=== PATIENT | male | born 2000 | race Caucasian/White ===

== ENCOUNTER 2022-05-09 18:51 | Emergency (ER) | payer MEDICAID, SELFPAY ==
[2022-05-09 19:30] VITALS: BP 149/63; PULSE 78; RESP 20; TEMP 36.8; O2SAT 98; BMI 32.5
--- NOTE | 2022-05-09 19:36 | EXP.UTC ---
Discharge Plan Disposition Patient Disposition: Home, Self-Care Condition: Good Prescriptions Prescriptions: New sulfamethoxazole-trimethoprim [Bactrim DS] 800-160 mg tablet 1 tab PO BID Qty: 20 0RF mupirocin 2 % ointment 1 applic topical TID 10 Days Qty: 22 0RF Rx Instructions: apply to skin around right great toe Referrals Follow up/Referrals: Stephany Dominguez APRN [Nurse Practitioner] - See instructions Provider,Referral, [Primary Care Provider] - See instructions Liliana Priest DPM [Staff Physician] - See instructions Activity Restrictions/Add. Instructions Additional Instructions/Restrictions: Soak foot in warm water and epson salt 3-4 times daily Open toed shoes or box toed shoes may help with discomfort and pain Take oral antibitiocs as prescribed and use topical antibiotics around skin on nail as instructed Follow up with Podiatry Call office for appoitment DO not dig or pry at area Straight to ER if any life threatening symptoms Clinical Impressions Clinical Impression: Ingrowing toenail with infection Stand Alone Forms Stand Alone Forms: Work/School Release Instructions Patient Instructions: Trimethoprim/Sulfamethoxazole (Alternative Therapy), DI for Ingrown Toenail, Mupirocin, DI for Infected Ingrown Toenail Discharge ED Provider: Tamika Vega [facility] [place] General Stated complaint: toe infection Time Seen by Provider: 05/09/22 19:36 History of Present Illness Provider Complaint: Patient states that he has been having issues with ingrown toenail on right great toe for over a month States that he has been trying to dig it out and thinks he may have got it infected now States that it is red and swollen and draining at times so he came in thinking he may need something for the infection Related Data Previous Rx's Medication Instructions Recorded mupirocin 2 % topical ointment 1 applic topical TID 10 days #22 05/09/22 grams sulfamethoxazole 800 1 tab PO BID #20 tabs 05/09/22 mg-trimethoprim 160 mg tablet (Bactrim DS) Allergies Allergy/AdvReac Type Severity Reaction Status Date / Time No Known Allergies Allergy Verified 05/09/22 19:43 [facility] Disclaimer: The information contained in this section may have been updated after the patient was seen, as this information can be updated by other users. Social History Smoking Status: Never smoker alcohol intake: never current occupational status: employed Travel in the last 8 weeks: None ROS Obtained: Yes All systems reviewed & no additional complaints except as documented and Yes Systems reviewed as appropriate & no additional complaints except as documented Constitutional Constitutional: Reports system reviewed and no additional complaints, except as documented and Reports as per HPI Eyes Eyes: Reports system reviewed and no additional complaints, except as documented and Reports as per HPI ENT Ears, Nose, Mouth, and Throat: Reports system reviewed and no additional complaints, except as documented and Reports as per HPI Cardiovascular Cardiovascular: Reports system reviewed and no additional complaints, except as documented and Reports as per HPI Musculoskeletal Musculoskeletal: Reports system reviewed and no additional complaints, except as documented and Reports as per HPI Comments: Right great toe infection/ingrown toenail Physical Exam General General appearance: alert and in no apparent distress Respiratory Respiratory exam: Present normal lung sounds bilaterally; Absent respiratory distress or wheezes Cardiovascular Cardiovascular exam: Present regular rate, normal rhythm and normal heart sounds Expanded Lower Extremity Exam Right: Top foot image: 1. redness, swelling and drainage noted to infected ingrown toenail Neurological Exam Neurological exam: Present alert, oriented X3 and normal gait Medical Decision Making Heath Inquiry Pt receiving controlled substance: No Heath wa
[2022-05-09 19:38] VITALS: BP 149/63; PULSE 78; RESP 20; TEMP 36.8; O2SAT 98
== END 2022-05-09 19:44 | disposition home or self-care (01) ==
PROVIDERS: Emergency Provider Nurse Practitioner
DX: L60.0 Ingrowing nail (principal); A49.01 Methicillin susceptible Staphylococcus aureus infection, unspecified site
CPT/HCPCS: 87070; 87077; 87186; 87205; 99212; 99213; G0463

== ENCOUNTER 2022-11-26 15:14 | Emergency (ER) | payer MEDICAID, SELFPAY ==
[2022-11-26 15:30] VITALS: BP 143/78; PULSE 63; RESP 19; TEMP 36.7; O2SAT 98
--- NOTE | 2022-11-26 15:46 | EXP.UTC ---
Discharge Plan Disposition Patient Disposition: Still a Patient Prescriptions Prescriptions: New sulfamethoxazole-trimethoprim [Bactrim DS] 800-160 mg tablet 1 tab PO BID Qty: 20 0RF mupirocin 2 % ointment 1 applic topical TID 10 Days Qty: 22 0RF Rx Instructions: apply to skin around the skin on both great toes No Action mupirocin 2 % ointment 1 applic topical BID Qty: 15 0RF mupirocin 2 % ointment 1 applic topical TID 10 Days Qty: 22 0RF Rx Instructions: apply to skin around right great toe Referrals Follow up/Referrals: Provider,Referral, MD [Primary Care Provider] - See instructions Daniel Woodard DPM [Physician] - See instructions Stephany Dominguez APRN [Nurse Practitioner] - See instructions Activity Restrictions/Add. Instructions Additional Instructions/Restrictions: Soak feet 10-15 minutes 3-4 times daily Apply topical ointment as prescribe and take oral antibiotics Call Podiatry and make appointment Return if needed Straight to ER if any life threatening symptoms Clinical Impressions Clinical Impression: Ingrowing toenail with infection Instructions Patient Instructions: DI for Infected Ingrown Toenail, DI for Ingrown Toenail Discharge ED Provider: Tamika Vega [facility] [place] HPI General Stated complaint: suspected infection in both big toes Mode of Arrival: Ambulatory Source of Information: Patient Limitations: No Limitations Time Seen by Provider: 11/26/22 15:46 Description of Symptoms (Recalled from Triage Doc. by RN): PATIENT C/O INGROWN TOENAILS TO BILATERAL GREAT TOES X 1 WEEK HEENT Symptoms (Recalled from RN notes): No Resp Symptoms (Recalled from RN notes): No Skin Symptoms (Recalled from RN notes): Yes MS Symptoms (Recalled from RN notes): No Functional Status (Recalled from RN notes): WNL History of Present Illness Provider Complaint: Patient states that he has a history of ingrown toenails and for the last week both great toenails have got inflammed again and started swelling and having redness so he came in to get them checked Related Data Previous Rx's Medication Instructions Recorded mupirocin 2 % topical ointment 1 applic topical TID 10 days #22 05/09/22 grams mupirocin 2 % topical ointment 1 applic topical BID apply to b/l 05/31/22 great toe #15 grams mupirocin 2 % topical ointment 1 applic topical TID 10 days #22 11/26/22 grams sulfamethoxazole 800 1 tab PO BID #20 tabs 11/26/22 mg-trimethoprim 160 mg tablet (Bactrim DS) Allergies Allergy/AdvReac Type Severity Reaction Status Date / Time No Known Allergies Allergy Verified 06/14/22 15:09 Worker's Comp Is this a Worker's Comp case?: No [facility] Disclaimer: The information contained in this section may have been updated after the patient was seen, as this information can be updated by other users. Social History Smoking Status: Never smoker alcohol intake: never current occupational status: employed Travel in the last 8 weeks: None ROS Obtained: Yes All systems reviewed & no additional complaints except as documented and Yes Systems reviewed as appropriate & no additional complaints except as documented Constitutional Constitutional: Reports system reviewed and no additional complaints, except as documented and Reports as per HPI Cardiovascular Cardiovascular: Reports system reviewed and no additional complaints, except as documented and Reports as per HPI Respiratory Respiratory: Reports system reviewed and no additional complaints, except as documented and Reports as per HPI Gastrointestinal Gastrointestingal: Reports system reviewed and no additional complaints, except as documented and as per HPI Integumentary/Breasts Skin/Breast: Reports system reviewed and no additional complaints, except as documented and Reports as per HPI Comments: bilateral ingrowing toenail worse on left Physical Exam General Gen
[2022-11-26 16:10] VITALS: BP 143/78; PULSE 63; RESP 19; TEMP 36.7; O2SAT 98
== END 2022-11-26 16:12 | disposition still patient (30) ==
PROVIDERS: Emergency Provider Nurse Practitioner
DX: L60.0 Ingrowing nail (principal)
CPT/HCPCS: 99212; 99214; G0463

== ENCOUNTER 2023-02-01 16:31 | Emergency (ER) | payer MEDICAID, SELFPAY ==
[2023-02-01 16:40] VITALS: BP 139/90; PULSE 88; RESP 18; TEMP 36.8; O2SAT 98; BMI 32.2
--- NOTE | 2023-02-01 16:48 | EXP.UTC ---
Discharge Plan Disposition Patient Disposition: Home, Self-Care Condition: Good Prescriptions Prescriptions: New mupirocin 2 % ointment 1 applic topical TID Qty: 22 0RF Rx Instructions: apply to skin around both great toe toenails sulfamethoxazole-trimethoprim [Bactrim DS] 800-160 mg tablet 1 tab PO Q12H Qty: 20 0RF Referrals Follow up/Referrals: Provider,Referral, [Primary Care Provider] - See instructions Daniel Woodard DPM [Physician] - See instructions Liliana Priest DPM [Staff Physician] - See instructions (call office for appointment) Activity Restrictions/Add. Instructions Additional Instructions/Restrictions: SOak feet in warm water and epson salt 3-4 times daily Take Medication as prescribed Use ointment as prescribed Follow up with Podiatry as was recommended for further evaluation and treatment Straight to ER if any life threatening symptoms Clinical Impressions Clinical Impression: Ingrowing toenail with infection Instructions Patient Instructions: DI for Infected Ingrown Toenail, DI for Ingrown Toenail Discharge ED Provider: Tamika Vega [facility] [place] General Stated complaint: ingrown toenails Mode of Arrival: Ambulatory Source of Information: Patient Limitations: No Limitations Time Seen by Provider: 02/01/23 16:48 Description of Symptoms (Recalled from Triage Doc. by RN): PATIENT C/O INGROWN TOENAILS TO BILATERAL GREAT TOES X 3 DAYS HEENT Symptoms (Recalled from RN notes): No Resp Symptoms (Recalled from RN notes): No Skin Symptoms (Recalled from RN notes): Yes MS Symptoms (Recalled from RN notes): No Functional Status (Recalled from RN notes): WNL History of Present Illness Provider Complaint: Patient states that he has a hx of ingrown toenails States that for the last few days he is having redness, swelling and drainage again from both great toes States he tried to dig out his toenails but thinks he may have got them infected so today he came in to get some antibiotics to help clear up the infection until he can get appointment with Podiatry Related Data Previous Rx's Medication Instructions Recorded mupirocin 2 % topical ointment 1 applic topical TID #22 grams 02/01/23 sulfamethoxazole 800 1 tab PO Q12H #20 tabs 02/01/23 mg-trimethoprim 160 mg tablet (Bactrim DS) Allergies Allergy/AdvReac Type Severity Reaction Status Date / Time No Known Allergies Allergy Verified 06/14/22 15:09 Worker's Comp Is this a Worker's Comp case?: No [facility] Disclaimer: The information contained in this section may have been updated after the patient was seen, as this information can be updated by other users. Social History Smoking Status: Never smoker alcohol intake: never current occupational status: employed Travel in the last 8 weeks: None ROS Obtained: Yes All systems reviewed & no additional complaints except as documented and Yes Systems reviewed as appropriate & no additional complaints except as documented Constitutional Constitutional: Reports system reviewed and no additional complaints, except as documented and Reports as per HPI ENT Ears, Nose, Mouth, and Throat: Reports system reviewed and no additional complaints, except as documented and Reports as per HPI Cardiovascular Cardiovascular: Reports system reviewed and no additional complaints, except as documented and Reports as per HPI Respiratory Respiratory: Reports system reviewed and no additional complaints, except as documented and Reports as per HPI Gastrointestinal Gastrointestingal: Reports system reviewed and no additional complaints, except as documented and as per HPI Musculoskeletal Musculoskeletal: Reports system reviewed and no additional complaints, except as documented and Reports as per HPI Comments: swelling, redness and drainage from skin around bilateral great toes due to ingrown toenails Physical Exam General General appearan
[2023-02-01 16:55] VITALS: BP 139/90; PULSE 88; RESP 18; TEMP 36.8; O2SAT 98
== END 2023-02-01 16:58 | disposition home or self-care (01) ==
PROVIDERS: Emergency Provider Nurse Practitioner
DX: L60.0 Ingrowing nail (principal); L03.031 Cellulitis of right toe; L03.032 Cellulitis of left toe
CPT/HCPCS: 99212; 99214; G0463

== ENCOUNTER 2023-08-04 07:39 | Emergency (ER) | payer BC, SELFPAY ==
[2023-08-04 07:41] VITALS: BP 135/83; PULSE 72; RESP 16; TEMP 36.6; O2SAT 98; BMI 27.4
[2023-08-04 07:47] VITALS: BP 135/83; PULSE 70; RESP 16; O2SAT 97
--- NOTE | 2023-08-04 07:55 | ED_ITS ---
Discharge Plan Disposition Patient Disposition: Home, Self-Care Prescriptions Prescriptions: New amoxicillin-pot clavulanate 875-125 mg tablet 1 tab PO BID 10 Days Qty: 7 0RF No Action mupirocin 2 % ointment 1 applic topical TID Qty: 22 0RF Rx Instructions: apply to skin around both great toe toenails sulfamethoxazole-trimethoprim [Bactrim DS] 800-160 mg tablet 1 tab PO Q12H Qty: 20 0RF Referrals Follow up/Referrals: Provider,Referral, [Primary Care Provider] - See instructions Liliana Priest DPM [Staff Physician] - See instructions Activity Restrictions/Add. Instructions Additional Instructions/Restrictions: Please apply Neosporin and make sure that the wounds are mechanically offloaded as discussed if you are going to go back to work. I recommend as much time off as you can possibly take to allow this to heal. Wear open toed shoes or make sure no significant trauma is ongoing as you wear your shoes for work. Clinical Impressions Clinical Impression: Ingrowing toenail with infection Instructions Patient Instructions: DI for Skin Abscess Discharge ED Provider: Vinny Chavez General Adult HPI General Chief complaint: Skin/Abscess/Foreign Body Stated complaint: Ingrown toenail on both big toes w/puss Time Seen by Provider: 08/04/23 07:44 History of Present Illness HPI narrative: Patient is a 22-year-old male presents today with bilateral ingrown toenails that have been bothering him for the last month he is attempted to get in to be seen by [facility] but has been unable states that the pain and inflammation has gotten to the point where he cannot handle it brought to the emergency department today. Related Data Previous Rx's Medication Instructions Recorded mupirocin 2 % topical ointment 1 applic topical TID #22 grams 02/01/23 sulfamethoxazole 800 1 tab PO Q12H #20 tabs 02/01/23 mg-trimethoprim 160 mg tablet (Bactrim DS) amoxicillin 875 mg-potassium 1 tab PO BID 10 days #7 tabs 08/04/23 clavulanate 125 mg tablet Allergies Allergy/AdvReac Type Severity Reaction Status Date / Time No Known Allergies Allergy Verified 06/14/22 15:09 [facility] Disclaimer: The information contained in this section may have been updated after the patient was seen, as this information can be updated by other users. Social History Smoking Status: Current every day smoker alcohol intake: never current occupational status: employed Travel in the last 8 weeks: None ROS Obtained: Yes All systems reviewed & no additional complaints except as documented Physical Exam General General appearance: alert Respiratory Respiratory exam: Present normal lung sounds bilaterally Cardiovascular Cardiovascular exam: Present regular rate Extremities Exam Extremities exam: Present other (Bilateral great toes has inflammation and evidence of recent bleeding on bilateral lateral aspect of toenails left ingrown aspects of mild inflammation of the surrounding tissue) Neurological Exam Neurological exam: Present alert and oriented X3 Medical Decision Making Heath Inquiry Pt receiving controlled substance: No Vital Signs: 08/04/23 07:41 08/04/23 07:47 Temperature 97.8 F Temperature Source Oral Pulse Rate 70 Pulse Rate [Left Radial] 72 Respiratory Rate 16 16 Blood Pressure 135/83 Blood Pressure [Right Arm] 135/83 Blood Pressure Mean 95 Blood Pressure Mean [Right Arm] 100 Blood Pressure Source [Right Arm] Automatic Cuff Blood Pressure Position [Right Arm] Sitting 02 Sat by Pulse Oximetry 98 97 Oxygen Delivery Method Room Air Medical Decision Narrative: Patient with above history and physical has mild inflammation on bilateral soft tissues on both great toes will require digital block elevation and resection of inflammatory components of ingrown toenails cover with antibiotics as well. I will have him follow-up with podiatry. Procedures Miscellaneous Procedure Procedure Performed: Bilateral ingrown toenail elevation Indication bilateral ingrown toenails with surrounding inflammation and infection of the soft tissue Digital blocks were performed bilaterally with 1% lidocaine with epinephrine 5 cc used per side subsequently the patient's lateral aspect of the nails were elevated above the location where they were ingrown and were cut centrally to alleviate any ongoing trauma from the ingrown aspect. There was some bleeding which was controlled with direct pressure. There is also a large area of diseased nail on the distal aspect of the left great toe nail which was removed. Patient tolerated procedure well. Critical Care Critical Care Time Critical Care Time: No
--- NOTE | 2023-08-04 08:51 | PC.NURSE ---
DR CABRAL AT BEDSIDE
[2023-08-04 09:23] VITALS: BP 142/76; PULSE 64; RESP 16; TEMP 36.6; O2SAT 100
== END 2023-08-04 09:24 | disposition home or self-care (01) ==
PROVIDERS: Emergency Provider Student in an Organized Health Care Education/Training Program
DX: L60.0 Ingrowing nail (principal); F17.210 Nicotine dependence, cigarettes, uncomplicated
CPT/HCPCS: 11750; 99283